=== PATIENT | female | born 1995 | race Hispanic/Latino ===

== ENCOUNTER 2019-09-14 01:47 | Emergency (ER) | payer OTHER, SELFPAY ==
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
[2019-09-14 04:27] LABS: Urine Blood TRACE (NEG); Urine Glucose NEGATIVE (NEG); Urine Protein NEGATIVE (NEG); Urine pH 5.5 (5.0-7.0)
[2019-09-14 04:42] VITALS: TEMP 98.4; O2SAT 100
[2019-09-14 04:44] VITALS: BP 129/86
--- NOTE | 2019-09-15 11:20 | RAD REPORT ---
EXAM DESCRIPTION: CT - Head Brain Wo Cont - 09/14/2019 5:29 am CLINICAL HISTORY: HEAD INJURY COMPARISON: None. TECHNIQUE: Axial unenhanced CT imaging of the brain. Reformatted coronal and sagittal images obtaine d. This examination was performed according to our departmental dose optimization program, which include s automated exposure control, adjustment of the mA and/or kV according to patient size and/or use of iterative reconstruction technique. FINDINGS: There is left periorbital and facial subcutaneous edema. There is mild right frontal scalp edema. There is no depressed or linear skull fracture. Skull base is intact. Imaged facial bones are intact. Intraorbital contents appear normal. There is mucosal thickening throughout the paranasal si nuses. Mastoid air cells are clear. Intact skull base and calvarium. There is no intracranial hemorrhage. No mass or midline shift. No edema. Earl-white matter differenti ation is preserved. Normal ventricle size and contour. Midline fluid collection between the lateral v entricles compatible with normal variant congenital cavum vergae. Normal cerebellum and vermis. Fourth ventricle is midline. Prepontine cisterns are not effaced. IMPRESSION: 1. Left facial, periorbital, and right frontal scalp edema. No intracranial bleed or sku ll fracture. 2. Mucosal sinus disease. 3. Congenital variant, cavum vergae. Electronically signed by: Kamila Mirza DO 09/14/2019 3:18 AM VET ASSISTANT ue to temporary technical issues with the PACS/Fluency reporting system, reports are being signed by the in house radiologist as a courtesy to ensure prompt reporting. The interpreting radiologist is rick diez responsible for the content of the report.
--- NOTE | 2019-09-15 11:22 | RAD REPORT ---
EXAM DESCRIPTION: CT - Facial Bones W/ Mpr - 09/14/2019 5:29 am CLINICAL HISTORY: 24-year-old female with facial pain. TECHNIQUE: Axial CT of the facial bones was performed without intravenous contrast with sagittal and coronal reformatted images. The CT study is performed according to ALARA (as low as reasonably achie vable) or ALARA/IMAGE GENTLY, with automatic adjustment of mA and/or kV according to patient size. Performed on: 09/14/2019 at 2:48 AM COMPARISON: None. FINDINGS: There is no evidence of acute facial bone fracture. The mandible is intact. The temporom andibular joints are preserved. Both globes are intact and are symmetric. The extraocular muscles and optic nerves are symmetric. T he intraconal fat is preserved. There is no evidence of intraorbital emphysema. There is patchy paranasal sinus mucosal thickening with greatest involvement of the ethmoid sinuses a nd sphenoid sinuses. The nasal bones are intact. The bony nasal septum is midline. The anterior maxillary spine is intact. Mastoid air cells and middle ear cavities are clear. There is left malar and left periorbital soft tissue swelling. IMPRESSION: 1. No evidence of acute facial bone pathology. 2. Left malar and left periorbital soft tissue swelling. 3. Patchy paranasal sinus mucosal thickening with greatest involvement of the ethmoid and sphenoid si nuses. Electronically signed by: Ayanna Medellin DO 09/14/2019 3:22 AM GARAGEMAN Due to temporary technical issues with the PACS/Fluency reporting system, reports are being signed by the in house radiologist as a courtesy to ensure prompt reporting. The interpreting radiologist is f ully responsible for the content of the report.
== END 2019-09-14 04:36 | disposition home or self-care (01) ==
LOC: ER 01:47
DX: S00.90XA Unspecified superficial injury of unspecified part of head, initial encounter (principal); Y04.2XXA Assault by strike against or bumped into by another person, initial encounter; Y93.89 Activity, other specified; Y92.89 Other specified places as the place of occurrence of the external cause; Z33.1 Pregnant state, incidental
CPT/HCPCS: 70450; 70486; 76377; 81003; 81025; 99284